=== PATIENT | female | born 1975 | race Two or more races ===

== ENCOUNTER 2016-10-09 09:42 | Emergency (ER) | payer OTHER ==
[2016-10-09] MEDS ORDERED: IBUPROFEN 800 MG TABLET ONE (10:16)
[2016-10-09 10:21] LABS: HCG,QUALITATIVE URINE NEGATIVE
[2016-10-09 10:31] LABS: SPECIFIC GRAVITY 1.015 (1.001-1.030); URINE APPEARANCE CLEAR; URINE COLOR YELLOW
[2016-10-09 10:32] LABS: URINE BILIRUBIN NEGATIVE (NEGATIVE); URINE BLOOD NEGATIVE (NEGATIVE); URINE GLUCOSE (UA) NEGATIVE (NEGATIVE); URINE LEUKOCYTE ESTERASE NEGATIVE (NEGATIVE); URINE NITRITE NEGATIVE (NEGATIVE); URINE PROTEIN NEGATIVE (NEGATIVE); URINE UROBILINOGEN NEGATIVE (0-1 mg/dl)
== END 2016-10-09 10:54 | disposition home or self-care (01) ==
LOC: ED 09:42
DX: M54.5 Low back pain (principal)
CPT/HCPCS: 81025; 81003; 99283 ×2; A9270